=== PATIENT | female | born 1975 | race Caucasian/White ===

== ENCOUNTER 2017-05-28 07:03 | Emergency (ER) | payer OTHER ==
[~2017-05-28] VITALS: Ht 152.4 cm; Wt 45.0 kg
[~2017-05-28 07:03] MED LIST: AMOXICILLIN500 MG PO; MEDDOSEPAK PO; MENEST2.5 MG PO; NAPROSYN500 MG PO
[2017-05-28] MEDS ORDERED: BENADRYL 50MG C50 MG PO (07:34)
[2017-05-28] MEDS ORDERED: KEFLEX500 MG PO (07:34)
[2017-05-28 08:15] VITALS: BP 128/79
== END 2017-05-28 08:15 | disposition home or self-care (01) | DRG 603 ==
LOC: ED 07:03
DX: L01.00 Impetigo, unspecified (principal)

== ENCOUNTER 2017-08-14 13:37 | Emergency (ER) | payer OTHER ==
[~2017-08-14] VITALS: Ht 152.4 cm; Wt 50.0 kg
[~2017-08-14 13:37] MED LIST changes: +BENADRYL 50MG C50 MG PO; +KEFLEX500 MG PO
[2017-08-14 14:27] VITALS: BP 118/80
[2017-08-14] MEDS ORDERED: PROZAC10 MG PO (14:30)
[2017-08-14] MEDS ORDERED: SEROQUEL100 MG PO (14:31)
[2017-08-14] MEDS ORDERED: MEDDOSEPAK PO (15:44)
== END 2017-08-14 15:48 | disposition left against medical advice (07) | DRG 607 ==
LOC: ED 13:37
DX: L29.9 Pruritus, unspecified (principal); R13.10 Dysphagia, unspecified; R06.00 Dyspnea, unspecified; R06.02 Shortness of breath; R21 Rash and other nonspecific skin eruption; T50.905A Adverse effect of unspecified drugs, medicaments and biological substances, initial encounter; Y92.009 Unspecified place in unspecified non-institutional (private) residence as the place of occurrence of the external cause